=== PATIENT | male | born 1960 | race African-American/Black ===

== ENCOUNTER 2024-04-04 21:05 | Emergency (ER) | payer OTHER ==
[~2024-04-04] VITALS: Ht 165.1 cm; Wt 60.0 kg
[2024-04-04 21:25] VITALS: BP 155/77; PULSE 81; RESP 16; TEMP 98.5; O2SAT 99
[2024-04-04] MEDS ORDERED: IBUP-2029 MT (22:27)
== END 2024-04-04 23:08 ==
LOC: ER 21:05
DX: M54.50 Low back pain, unspecified (principal); R07.9 Chest pain, unspecified; R51.9 Headache, unspecified; Y04.8XXA Assault by other bodily force, initial encounter; Y93.89 Activity, other specified; Y92.89 Other specified places as the place of occurrence of the external cause; Y99.8 Other external cause status
CPT/HCPCS: 99284